=== PATIENT | male | born 1950 | race Caucasian/White ===

== ENCOUNTER → 2020-06-04 | Outpatient (CLI) | payer OTHER ==
[~2020-06-04] MED LIST: DIPHENHYDRAMINE25 M3 PO; ELIQUIS5 MG PO; GLUCOSAMINE &1 EACH PO; LISINOPRIL10 MG PO; METFORMIN HCL1000 MG PO; METOPROLOL SUCC25 M1 PO; MULTIVITAMINS1 EAC7 PO; OMEPRAZOLE 20 M20 M1 PO; ROSUVASTATIN CA40 MG PO
== END ==
LOC: LAB 13:34
PROVIDERS: ATTEND Student in an Organized Health Care Education/Training Program
DX: Z01.812 Encounter for preprocedural laboratory examination (principal); Z20.828 Contact with and (suspected) exposure to other viral communicable diseases

== ENCOUNTER → 2020-06-08 | Outpatient (CLI) | payer OTHER ==
[2020-06-08 15:00] VITALS: BP 123/80
--- NOTE | 2020-06-08 15:43 | NUR ---
VASCULAR ACCESS CONSULTED FOR PICC PLACEMENT. PT'S HX,MEDS VERIFIED. PT IS HAVING OR TOMORROW ON RIGHT HAND SO WILL HAVE DRESSING ON THAT HAND. PT WILL BE ADMINISTERING PWN MEDS AND REQUESTED PICC ON RIGHT SIDE SO HE CAN USE LEFT HAND. REVIEWED BENEFITS AND RISK WITH PT VERBALIZED UNDERSTANDING. 4FR POWER PICC SL TRIMMED TO 42CM INSERTED TO 0CM. STAT CXR ORDERED. PT TOLERATED WELL
--- NOTE | 2020-06-08 15:43 | NUR ---
IN FOR PICC LINE FOR HOME IV ANTIBIOTICS DUE TO RIGHT THUMB OSTEOMYELITIS. PATIENT TO HAVE SURGERY TOMORROW. IV TEAM PLACED SINGLE LUMEN PICC IN RIGHTY UPPER ARM BASILIC VEIN. CMP DRAWN WITHOUT DIFFICULTY. CXR CONFIRMED PROPER PLACEMENT AND OK TO USE. DISMISSED IN STABLE CONDITION.
--- NOTE | 2020-06-08 16:05 | NUR ---
CXR SHOWED PICC COILED SO REPOSITIONED AND POWER FLUSHED. 2ND CXR ORDERED STAT
[2020-06-08 16:06] LABS: ALBUMIN 3.8 g/dL (3.4-5.0); CALCIUM 8.8 mg/dL (8.5-10.1); CREATININE 0.9 mg/dL (0.7-1.3); TOTAL BILIRUBIN 0.4 mg/dL (0.2-1.0); TOTAL PROTEIN 6.8 g/dL (6.4-8.2)
--- NOTE | 2020-06-08 16:39 | NUR ---
2ND CXR PICC UNCOILED. PICC RELEASED FOR IMMEDIATE USE PER PROTOCOL
== END ==
LOC: OPONC 14:54
PROVIDERS: ATTEND Specialist
DX: M86.8X4 Other osteomyelitis, hand (principal)
CPT/HCPCS: 27000

== ENCOUNTER 2020-06-09 06:10 | Day surgery (SDC) | payer OTHER ==
[~2020-06-09] VITALS: Ht 182.9 cm; Wt 81.6 kg
[2020-06-09 07:04] VITALS: BP 137/77
[2020-06-09 08:21] VITALS: BP 137/77
--- NOTE | 2020-06-09 10:48 | EKG ---
[facility] [place] [address] [place] [address] ELECTROCARDIOGRAM REPORT Name: CANDELARIO MARIA Room #: [facility].#: [id number] Admission: 06/09/20 Attend Phys: Kavita Crane, Discharge: 06/09/20 Date of : 52 Report #: [id number] THIS REPORT FOR: cc: Kaleigh Goldstein MD,Kaleigh Ferrara,Tony Almaraz MD ~ THIS REPORT FOR: //name// [facility] Test Date: 2020-06-09 Test Time: 06:40:56 Pat Name: CANDELARIO MARIA Department: Room: [facility] 2 Gender: M Device Repair Technician: YONNY : 1950 Requested By: Gemma Kenny Order Number: [id number] MD: Tony Ferrara Measurements Intervals [place] Rate: 57 P: 205 WY: 254 QRS: 53 QRSD: 96 T: 38 QT: 431 QTc: 420 Interpretive Statements Atrial fibrillation Early transition Nonspecific ST-T wave changes Baseline wander Borderline low voltage, extremity leads No previous ECG available for comparison Electronically Signed On 06-09-2020 10:48:01 CDT by Tony Ferrara [email or web address] <ELECTRONICALLY SIGNED> By: Tony Ferrara MD 06/09/20 1048 0640 0640 Tony Ferrara MD /EPI
--- NOTE | 2020-06-10 17:20 | O ---
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 PROCEDURES PERFORMED: Right thumb interphalangeal joint debridement of bone and soft tissue. SURGEON: Kavita Crane MD ANESTHESIA: General mask anesthesia. ESTIMATED BLOOD LOSS: 1 mL TOURNIQUET TIME: 22 minutes. SPECIMEN: Swab and bone was sent to microbiology. COMPLICATIONS: None. CONDITION: Stable. DISPOSITION: Recovery room. INDICATIONS: The patient is a 70-year-old male with the above-mentioned diagnosis. He elects for operative treatment. The risks, benefits, alternatives and complications were discussed including but not limited to infection, damage to vessels or nerves, inability to resolve the infection necessitating more surgery, stiffness. Informed consent was obtained. The correct extremity was identified and labeled by myself. After verbal confirmation of the patient as well as visual confirmation and signed informed consent. DESCRIPTION OF PROCEDURE: The patient was brought to the operating room and [facility] [address] [place] [address] OPERATIVE REPORT Name: CANDELARIO MARIA Room #: DEP [facility] M.R.#: [id number] Admission: 06/09/20 Attend Phys: Kavita Crane, Discharge: 06/09/20 Date of : 52 Report #: [id number] placed on a supine position. The right upper extremity was sterilely prepped and draped in the usual fashion. Final timeout was taken to verify correct patient, operative procedure, operative site, all concurred. The arm was elevated, but was not exsanguinated and the tourniquet inflated. Next, the prior entry point for the drill was entered. A T-type incision was made on the radial side of the IP joint of the thumb. Dissection was carried down through subcutaneous tissue with a 15 blade. The joint was then entered. There was no gross pus. The joint was debrided with a micro curette using fluoroscopic guidance. Small bits of the bone were sent off to microbiology, see above. Fluoroscopy again showed a fairly destroyed IP joint. The joint was then thoroughly irrigated with approximately 750 mL of antibiotic saline using angiocatheter. The rest of the joint was irrigated with an Asepto. The wound was then closed with 4-0 nylon suture. The wound was dressed with Xeroform and sterile gauze. He was placed in a bulky dressing. All fingers were pink with brisk capillary refill. At the conclusion of the case after deflation of tourniquet and after application of dressing, all sponge and needle counts were correct. The patient did receive antibiotics after the tourniquet was deflated and cultures were taken. He was transferred to postoperative recovery room in stable condition. He tolerated the procedure well. <ELECTRONICALLY SIGNED> By: Kavita Crane MD 06/10/20 1720 0822 0845 Kavita Crane MD /nt
== END 2020-06-09 09:06 | disposition home or self-care (01) ==
LOC: TBA 06:10 → OR 06:10 → TBA 06:12 → OR 09:06
PROVIDERS: ATTEND Orthopaedic Surgery Hand Surgery
DX: M86.8X4 Other osteomyelitis, hand (principal); M13.841 Other specified arthritis, right hand; E11.9 Type 2 diabetes mellitus without complications; K21.9 Gastro-esophageal reflux disease without esophagitis; I48.91 Unspecified atrial fibrillation; Z98.890 Other specified postprocedural states; Z79.899 Other long term (current) drug therapy; Z90.49 Acquired absence of other specified parts of digestive tract; Z87.891 Personal history of nicotine dependence; Z86.73 Personal history of transient ischemic attack (TIA), and cerebral infarction without residual deficits; Z98.52 Vasectomy status; Z79.01 Long term (current) use of anticoagulants
CPT/HCPCS: 50010; 50101; 50386; 56526; 57006; 57091; 57178; 62110; 62900; 70005

== ENCOUNTER → 2020-06-10 | Outpatient (CLI) | payer OTHER ==
[2020-06-10 13:08] VITALS: BP 128/79
--- NOTE | 2020-06-10 14:11 | NUR ---
IN FOR IV DAPTOMYCIN FOR OSTEOMYELITIS RIGHT THUMB. S/P I&D YESTERDAY. DRESSING C/D/I. DENIED FEVER, CHILLS. HAVING MINIMAL PAIN TO RT THUMB AFTER TAKING A HYDROCODONE AT HOME THIS AM. TOLERATED INFUSION WITHOUT INCIDENT. PICC SITE WNL WITH GOOD BLOOD RETURN. SCHEDULED THROUGH . TO SEE DR. GROSSMAN NEXT SUNDAY IN HIS OFFICE. WITH PATIENT. WILL RETURN TOMORROW FOR THE SAME. DISMISSED IN STABLE CONDITION.
== END ==
LOC: OPONC 08:06
PROVIDERS: ATTEND Specialist
DX: M86.8X4 Other osteomyelitis, hand (principal)
CPT/HCPCS: 95000

== ENCOUNTER → 2020-06-11 | Outpatient (CLI) | payer OTHER ==
[2020-06-11 15:31] VITALS: BP 135/85
--- NOTE | 2020-06-11 15:35 | NUR ---
IN FOR DAILY DAPTOMYCIN INFUSION FOR OSTEOMYELITIS RT THUMB. DENIED FEVER, CHILLS, DIARRHEA, NAUSEA, VOMITING. TOLERATED INFUSION WITHOUT INCIDENT. PICC SITE WNL WITH GOOD BLOOD RETURN. WEEKEND INSTRUCTIONS GIVEN TO PATIENT. DISMISSED IN STABLE CONDITION.
== END ==
LOC: OPONC 07:48
PROVIDERS: ATTEND Specialist
DX: M86.141 Other acute osteomyelitis, right hand (principal)
CPT/HCPCS: 95000

== ENCOUNTER → 2020-06-12 | Outpatient (CLI) | payer OTHER | LOC: OPONC 06-11 12:00 | PROVIDERS: ATTEND Specialist | DX: M86.9 Osteomyelitis, unspecified (principal); M79.644 Pain in right finger(s) | CPT/HCPCS: 95000 ==

== ENCOUNTER → 2020-06-13 | Outpatient (CLI) | payer OTHER | LOC: OPONC 06-12 09:00 | PROVIDERS: ATTEND Specialist | DX: M86.9 Osteomyelitis, unspecified (principal) | CPT/HCPCS: 95000 ==

== ENCOUNTER → 2020-06-14 | Outpatient (CLI) | payer OTHER | LOC: OPONC 08:25 | PROVIDERS: ATTEND Specialist | DX: M86.8X4 Other osteomyelitis, hand (principal) | CPT/HCPCS: 95000 ==

== ENCOUNTER → 2020-06-15 | Outpatient (CLI) | payer OTHER ==
[2020-06-15 12:30] VITALS: BP 114/76
--- NOTE | 2020-06-15 13:05 | NUR ---
HERE FOR DAILY DAPTOMYCIN INFUSION. REPORTS DOING WELL, FEELING WELL. HAVING FREQUENT BUT VERY SMALL AMTS OF LIQUID STOOLING BUT HAS DAILY NORMAL BM'S WELL. EATING WELL. NO N/V. DENIES FEVER/CHILLS OR MUSCLE PAINS/WEAKNESS. C/O SOME FATIGUE. SEES DR. GROSSMAN THIS AFTERNOON AND DR. JACK TOMORROW. RT THUMB DRSG D/I. STATES PAINS HIM IN CERTAIN POSITIONS OR TOUCHING CERTAIN AREAS. ENCOURAGED PT TO REPORT THE LIQUID STOOLS TO DR. GROSSMAN AND PAIN TO DR. JACK. LABS DRAWN PER PICC, DSG CHANGE DONE, SITE LOOKS GOOD. TOLERATED INFUSION WITHOUT INCIDENT. DISMISSED IN STABLE CONDITION. SCHEDULED TO RETURN AGAIN TOMORROW.
[2020-06-15 13:46] LABS: HEMATOCRIT 42.4 % (42.0-52.0); HEMOGLOBIN 14.4 gm/dL (14.0-18.0); MCH 32.2 pg (26.0-34.0); MCHC 33.9 g/dL (28.0-37.0); MCV 94.9 fL (80.0-100.0); RBC 4.46 mil/uL (4.50-6.00); RDW 12.7 % (10.5-14.5); WBC 8.3 thou/uL (4.0-11.0)
[2020-06-15 14:06] LABS: ALBUMIN 3.9 g/dL (3.4-5.0); ANION GAP 14 mmol/L (7-16); BUN 18 mg/dL (7-18); CALCIUM 8.9 mg/dL (8.5-10.1); CHLORIDE 105 mmol/L (98-107); CO2 23 mmol/L (21-32); GLUCOSE 186 mg/dL (74-106); POTASSIUM 3.9 mmol/L (3.5-5.1); SGOT 28 U/L (15-37); SGPT 72 U/L (30-65); SODIUM 142 mmol/L (136-145); TOTAL BILIRUBIN 0.6 mg/dL (0.2-1.0); TOTAL PROTEIN 7.1 g/dL (6.4-8.2)
== END ==
LOC: OPONC 08:16
PROVIDERS: ATTEND Specialist
DX: M86.9 Osteomyelitis, unspecified (principal)
CPT/HCPCS: 95000

== ENCOUNTER → 2020-06-16 | Outpatient (CLI) | payer OTHER ==
[2020-06-16 12:10] VITALS: BP 112/79
--- NOTE | 2020-06-16 12:51 | NUR ---
HERE FOR DAILY DAPTOMYCIN INFUSION. REPORTS DOING WELL. NO FEVER/CHILLS. NO FURTHER DIARRHEA. SPOKE WITH DR. GROSSMAN ABOUT EARLIER WATERY STOOLS AND STATES DR GROSSMAN ADVISED LOMOTIL AND A PROBIOTIC FOR MANAGEMENT. TOLERATED INFUSION TODAY WITHOUT INCIDENT. DISMISSED IN STABLE CONDITION. SEES DR. JACK IN THE MORNING THEN US AGAIN AT NOON.
== END ==
LOC: OPONC 07:51
PROVIDERS: ATTEND Specialist
DX: M86.9 Osteomyelitis, unspecified (principal)
CPT/HCPCS: 95000

== ENCOUNTER → 2020-06-17 | Outpatient (CLI) | payer OTHER ==
[2020-06-17 12:46] VITALS: BP 123/72
--- NOTE | 2020-06-17 12:49 | NUR ---
IN FOR DAILY DAPTOMYCIN FOR OSTEOMYELITIS OF RT THUMB. DENIED MUSCLE WEAKNESS, NAUSEA, DIARRHEA, FEVER/CHILLS. TOLERATED INFUSION WITHOUT INCIDENT. TO RETURN TOMORROW FOR THE SAME. DISMISSED IN GOOD CONDITION.
== END ==
LOC: OPONC 08:29
PROVIDERS: ATTEND Specialist
DX: M86.8X4 Other osteomyelitis, hand (principal)
CPT/HCPCS: 95000

== ENCOUNTER → 2020-06-18 | Outpatient (CLI) | payer OTHER ==
[2020-06-18 14:53] VITALS: BP 127/80
--- NOTE | 2020-06-18 14:56 | NUR ---
IN FOR DAILY DAPTOMYCIN INFUSION FOR RT THUMB OSTEOMYELITIS. STATED FEELING WELL. DENIED MUSCLE WEAKNESS, FEVER/CHILLS, NAUSEA, PAIN AND DIARRHEA. TOLERATED INFUSION WITHOUT INCIDENT. PICC SITE WNL WITH GOOD BLOOD RETURN. PATIENT TO GO TO ED FOR AND SUNDAY INFUSIONS. DISMISSED IN GOOD CONDITION.
== END ==
LOC: OPONC 08:31
PROVIDERS: ATTEND Specialist
DX: M86.9 Osteomyelitis, unspecified (principal)
CPT/HCPCS: 95000

== ENCOUNTER → 2020-06-19 | Outpatient (CLI) | payer OTHER | LOC: OPONC 08:43 | PROVIDERS: ATTEND Specialist | DX: M86.8X4 Other osteomyelitis, hand (principal) | CPT/HCPCS: 95000 ==

== ENCOUNTER → 2020-06-20 | Outpatient (CLI) | payer OTHER | LOC: OPONC 06-19 08:46 | PROVIDERS: ATTEND Specialist | DX: M86.8X4 Other osteomyelitis, hand (principal) | CPT/HCPCS: 95000 ==

== ENCOUNTER → 2020-06-21 | Outpatient (CLI) | payer OTHER | LOC: OPONC 07:53 | PROVIDERS: ATTEND Specialist | DX: M86.9 Osteomyelitis, unspecified (principal) | CPT/HCPCS: 95000 ==

== ENCOUNTER → 2020-06-22 | Outpatient (CLI) | payer OTHER ==
[2020-06-22 13:40] LABS: ABSOLUTE NEUTROPHILS 5.2 thou/uL (1.4-8.2); BASOPHILS 0.7 % (0.0-2.0); EOSINOPHILS 0.5 % (0.0-3.0); HEMATOCRIT 40.1 % (42.0-52.0); HEMOGLOBIN 13.7 gm/dL (14.0-18.0); LYMPHOCYTES 24.7 % (24.0-44.0); MCH 32.5 pg (26.0-34.0); MCHC 34.2 g/dL (28.0-37.0); MCV 94.9 fL (80.0-100.0); MONOCYTES 7.3 % (1.0-8.0); PLATELET COUNT 146 thou/uL (150-400); POLYS 66.8 % (36.0-66.0); RBC 4.23 mil/uL (4.50-6.00); RDW 12.7 % (10.5-14.5); WBC 7.8 thou/uL (4.0-11.0)
[2020-06-22 13:54] LABS: ALBUMIN 4.2 g/dL (3.4-5.0); ANION GAP 9 mmol/L (7-16); BUN 16 mg/dL (7-18); CALCIUM 8.7 mg/dL (8.5-10.1); CHLORIDE 105 mmol/L (98-107); CO2 26 mmol/L (21-32); GLUCOSE 128 mg/dL (74-106); SGOT 40 U/L (15-37); SGPT 86 U/L (30-65); SODIUM 140 mmol/L (136-145); TOTAL BILIRUBIN 0.6 mg/dL (0.2-1.0); TOTAL PROTEIN 7.1 g/dL (6.4-8.2)
[2020-06-22 14:19] VITALS: BP 114/66
--- NOTE | 2020-06-22 14:22 | NUR ---
IN FOR DAILY DAPTOMYCIN INFUSION FOR RT THUMB OSTEOMYELITIS. STATED FEELING WELL. DENIED NAUSEA, PAIN, DIARRHEA, FEVER/CHILLS. LIC[facility] LAB FROM PICC LINE WITHOUT DIFFICULTY. TOLERATED INFUSION WITHOUT INCIDENT. CHANGED PICC DRESSING. SITE WN. HAS APPT WITH DR. GROSSMAN AT HIS OFFICE THIS AFTERNOON. FAXED LAB RESULTS TO DR. GROSSMAN. DISMISSED IN GOOD CONDITION. TO RETURN TOMORROW FOR THE SAME.
== END ==
LOC: OPONC 07:44
PROVIDERS: ATTEND Specialist
DX: M86.8X4 Other osteomyelitis, hand (principal)
CPT/HCPCS: 95000

== ENCOUNTER → 2020-06-23 | Outpatient (CLI) | payer OTHER ==
[2020-06-23 12:25] VITALS: BP 107/79
--- NOTE | 2020-06-23 13:00 | NUR ---
HERE FOR DAILY DAPTOMYCIN INFUSION. REPORTS DOING WELL. DENIES N/V/DIARRHEA, FEVER/CHILLS, MUSCLE PAIN OR WEAKNESS. RT THUMB DRSG D/I. PT WITHOUT ANY CONCERNS. TOLERATED INFUSION WITHOUT INCIDENT. DISMISSED IN STABLE CONDITION. SCHEDULED TO RETURN AGAIN AT NOON TOMORROW.
== END ==
LOC: OPONC 09:54
PROVIDERS: ATTEND Specialist
DX: M86.8X4 Other osteomyelitis, hand (principal)
CPT/HCPCS: 95000

== ENCOUNTER → 2020-06-24 | Outpatient (CLI) | payer OTHER ==
[2020-06-24 16:32] VITALS: BP 101/64
--- NOTE | 2020-06-24 16:34 | NUR ---
IN FOR DAILY DAPTOMYCIN INFUSION FOR RT THUMB OSTEOMYELITIS. STATED FEELING WELL. DENIED FEVER, CHILLS, NAUSEA, DIARRHEA, PAIN. TOLERATED INFUSION WITHOUT INCIDENT. PLAN IS TO CONTINUE FOR ANOTHER WEEK. DISMISSED IN GOOD CONDITION.
== END ==
LOC: OPONC 13:50
PROVIDERS: ATTEND Specialist
DX: M86.8X4 Other osteomyelitis, hand (principal)
CPT/HCPCS: 95000

== ENCOUNTER → 2020-06-25 | Outpatient (CLI) | payer OTHER ==
[2020-06-25 11:40] VITALS: BP 129/69
--- NOTE | 2020-06-25 15:48 | NUR ---
IN FOR DAILY DAPTOMYCIN INFUSION. STATED FEELING WELL. DENIED NAUSEA, FEVER/CHILLS, PAIN, DIARRHEA. TOLERATED INFUSION WITHOUT INCIDENT. PICC SITE WNL. GOOD BLOOD RETURN. TO GO TO ED FOR WEEKEND INFUSIONS AND THEN BACK TO CLINIC ON SUNDAY THROUGHT SUNDAY. DISMISSED IN GOOD CONDITION.
== END ==
LOC: OPONC 10:34
PROVIDERS: ATTEND Specialist
DX: M86.8X4 Other osteomyelitis, hand (principal)
CPT/HCPCS: 95000

== ENCOUNTER → 2020-06-26 | Outpatient (CLI) | payer OTHER | LOC: OPONC 12:00 | PROVIDERS: ATTEND Specialist | DX: M86.8X4 Other osteomyelitis, hand (principal) | CPT/HCPCS: 95000 ==

== ENCOUNTER → 2020-06-27 | Outpatient (CLI) | payer OTHER | LOC: OPONC 12:00 | PROVIDERS: ATTEND Specialist | DX: M86.8X4 Other osteomyelitis, hand (principal) | CPT/HCPCS: 95000 ==

== ENCOUNTER → 2020-06-28 | Outpatient (CLI) | payer OTHER ==
[2020-06-28 07:36] VITALS: BP 122/87
--- NOTE | 2020-06-28 08:10 | NUR ---
HERE FOR DAILY DAPTOMYCIN INFUSION. REPORTS DOING WELL, FEELING WELL. DENIES N/V/DIARRHEA, FEVER/CHILLS, MUSCLE PAIN/WEAKNESS. NO CONCERS NOTED. TOLERATED INFUSION WITHOUT INCIDENT. DISMISSED IN STABLE CONDITION.
== END ==
LOC: OPONC 08:10
PROVIDERS: ATTEND Specialist
DX: M86.8X4 Other osteomyelitis, hand (principal)
CPT/HCPCS: 95000

== ENCOUNTER → 2020-06-29 | Outpatient (CLI) | payer OTHER ==
[2020-06-29 12:35] VITALS: BP 131/77
[2020-06-29 12:58] LABS: HEMATOCRIT 40.5 % (42.0-52.0); HEMOGLOBIN 13.7 gm/dL (14.0-18.0); MCH 32.1 pg (26.0-34.0); MCHC 33.8 g/dL (28.0-37.0); MCV 94.8 fL (80.0-100.0); RBC 4.27 mil/uL (4.50-6.00); RDW 12.4 % (10.5-14.5); WBC 7.6 thou/uL (4.0-11.0)
--- NOTE | 2020-06-29 13:00 | NUR ---
HERE FOR DAILY DAPTOMYCIN INFUSION. REPORTS DOING WELL, FEELING WELL. LABS DRAWN TODAY, PICC DRESSING CHANGE DONE. ALL LOOKS GOOD. PT WITHOUT CONCERNS. TOLERATED INFUSION WITHOUT INCIDENT. DISMISSED IN STABLE CONDITION.
[2020-06-29 14:40] LABS: CALCIUM 9.1 mg/dL (8.5-10.1); POTASSIUM 4.4 mmol/L (3.5-5.1); TOTAL BILIRUBIN 0.8 mg/dL (0.2-1.0); TOTAL PROTEIN 7.7 g/dL (6.4-8.2)
== END ==
LOC: OPONC 11:37
PROVIDERS: ATTEND Specialist
DX: M86.9 Osteomyelitis, unspecified (principal)
CPT/HCPCS: 95000

== ENCOUNTER → 2020-06-30 | Outpatient (CLI) | payer OTHER ==
[2020-06-30 12:35] VITALS: BP 120/88
== END ==
LOC: OPONC 11:13
PROVIDERS: ATTEND Specialist
DX: M86.9 Osteomyelitis, unspecified (principal)
CPT/HCPCS: 95000

== ENCOUNTER → 2020-07-01 | Outpatient (CLI) | payer OTHER ==
[2020-07-01 14:10] VITALS: BP 116/67
== END ==
LOC: OPONC 11:10
PROVIDERS: ATTEND Specialist
DX: M86.9 Osteomyelitis, unspecified (principal)
CPT/HCPCS: 95000

== ENCOUNTER → 2020-07-02 | Outpatient (CLI) | payer OTHER ==
[2020-07-02 16:36] VITALS: BP 123/78
== END ==
LOC: OPONC 12:03
PROVIDERS: ATTEND Specialist
DX: M86.9 Osteomyelitis, unspecified (principal)
CPT/HCPCS: 95000

== ENCOUNTER → 2020-07-03 | Outpatient (CLI) | payer OTHER ==
[2020-07-03 11:23] VITALS: BP 126/86
== END ==
LOC: OPONC 11:32
PROVIDERS: ATTEND Specialist
DX: M86.9 Osteomyelitis, unspecified (principal)
CPT/HCPCS: 95000

== ENCOUNTER → 2020-07-04 | Outpatient (CLI) | payer OTHER ==
[2020-07-04 11:17] VITALS: BP 122/81
--- NOTE | 2020-07-04 11:44 | NUR ---
IN FOR DAILY DAPTOMYCIN INFUSION. STATED FEELING WELL. DENIED NAUSEA, DIARRHEA, FEVER, CHILLS, PAIN. TOLERATED INFUSION WITHOUT INCIDENT. DISMISSED IN GOOD CONDITION.
== END ==
LOC: OPONC 10:38
PROVIDERS: ATTEND Specialist
DX: M86.9 Osteomyelitis, unspecified (principal)
CPT/HCPCS: 95000

== ENCOUNTER → 2020-07-05 | Outpatient (CLI) | payer OTHER ==
[2020-07-05 11:12] VITALS: BP 115/73
--- NOTE | 2020-07-05 12:08 | NUR ---
HERE FOR DAILY IV DAPTOMYCIN INFUSION. REPORTS DOING WELL, FEELING WELL. NO CONCERNS NOTED. TOLERATED INFUSION WITHOUT INCIDENT. DISMISSED IN STABLE CONDITION. SCHEDULED TO RETURN AGAIN TOMORROW.
== END ==
LOC: OPONC 10:02
PROVIDERS: ATTEND Specialist
DX: M06.9 Rheumatoid arthritis, unspecified (principal)
CPT/HCPCS: 95000

== ENCOUNTER → 2020-07-06 | Outpatient (CLI) | payer OTHER ==
[2020-07-06 14:12] LABS: HEMATOCRIT 38.4 % (42.0-52.0); MCH 31.9 pg (26.0-34.0); MCHC 33.7 g/dL (28.0-37.0); MCV 94.6 fL (80.0-100.0); RBC 4.07 mil/uL (4.50-6.00); RDW 12.5 % (10.5-14.5); WBC 7.8 thou/uL (4.0-11.0)
[2020-07-06 14:31] LABS: ALBUMIN 3.9 g/dL (3.4-5.0); CALCIUM 9.1 mg/dL (8.5-10.1); CREATININE 0.9 mg/dL (0.7-1.3); TOTAL BILIRUBIN 0.4 mg/dL (0.2-1.0)
[2020-07-06 15:01] VITALS: BP 109/64
--- NOTE | 2020-07-06 15:03 | NUR ---
IN FOR DAILY DAPTOMYCIN INFUSION. STATED FEELING WELL. TOLERATED INFUSION WITHOUT INCIDENT. LICHA LABS FROM PICC LINE WITHOUT DIFFICULTY. PICC DRESSING CHANGED. SITE WNL. DISMISSED IN GOOD CONDITION.
== END ==
LOC: OPONC 11:27
PROVIDERS: ATTEND Specialist
DX: M86.9 Osteomyelitis, unspecified (principal)
CPT/HCPCS: 95000

== ENCOUNTER → 2020-07-07 | Outpatient (CLI) | payer OTHER ==
[2020-07-07 12:00] VITALS: BP 117/77
--- NOTE | 2020-07-07 12:05 | NUR ---
HERE FOR DAILY IV DAPTOMYCIN INFUSION. REPORTS DOING WELL, FEELING WELL. NO CONCERNS NOTED. TOLERATED INFUSION WITHOUT INCIDENT. DISMISSED IN STABLE CONDITION. SCHEDULED TO RETURN TOMORROW.
== END ==
LOC: OPONC 10:41
PROVIDERS: ATTEND Specialist
DX: M86.9 Osteomyelitis, unspecified (principal)
CPT/HCPCS: 95000

== ENCOUNTER → 2020-07-08 | Outpatient (CLI) | payer OTHER ==
[2020-07-08 15:07] VITALS: BP 111/75
--- NOTE | 2020-07-08 15:12 | NUR ---
IN FOR DAPTOMYCIN INFUSION FOR RT THUMB OSTEOMYELITIS. STATED FEELING WELL. DENIED N/V, F/C, DIARRHEA, PAIN. TOLERATED INFUSION WITHOUT INCIDENT. PICC SITE WNL WITH GOOD BLOOD RETURN. TO RETURN TOMORROW FOR NEXT INFUSION. DISMISSED IN GOOD CONDITION.
== END ==
LOC: OPONC 10:44
PROVIDERS: ATTEND Specialist
DX: M86.9 Osteomyelitis, unspecified (principal)
CPT/HCPCS: 95000

== ENCOUNTER → 2020-07-09 | Outpatient (CLI) | payer OTHER ==
[2020-07-09 15:28] VITALS: BP 124/78
--- NOTE | 2020-07-09 15:30 | NUR ---
IN FOR DAILY DAPTOMYCIN INFUSION. STATED FEELING WELL. TOLERATED INFUSION WITHOUT INCIDENT. DISMISSED IN GOOD CONDITION.
== END ==
LOC: OPONC 10:44
PROVIDERS: ATTEND Specialist
DX: M86.9 Osteomyelitis, unspecified (principal)
CPT/HCPCS: 95000

== ENCOUNTER → 2020-07-10 | Outpatient (CLI) | payer OTHER ==
[2020-07-10 11:43] VITALS: BP 134/81
--- NOTE | 2020-07-10 11:59 | NUR ---
IN FOR DAILY DAPTOMYCIN INFUSION FOR RIGHT THUMB OSTEOMYELITIS. STATED FEELING WELL. DENIED NAUSEA, DIARRHEA, PAIN, FEVER, CHILLS. TOLERATED INFUSION WITHOUT INCIDENT. DISMISSED IN GOOD CONDITION.
== END ==
LOC: OPONC 11:31
PROVIDERS: ATTEND Specialist
DX: M86.9 Osteomyelitis, unspecified (principal)
CPT/HCPCS: 95000

== ENCOUNTER → 2020-07-11 | Outpatient (CLI) | payer OTHER ==
[2020-07-11 11:46] VITALS: BP 121/54
--- NOTE | 2020-07-11 11:48 | NUR ---
IN FOR DAILY DAPTOMYCIN INFUSION FOR RT THUMB OSTEOMYELITIS. STATED FEELING WELL. DENIED N/V, F/C, PAIN, MUSCLE WEAKNESS. TOLERATED INFUSION WITHOUT INCIDENT. TO RETURN TOMORROW FOR THE SAME. DISMISSED IN GOOD CONDITION.
== END ==
LOC: OPONC 11:53
PROVIDERS: ATTEND Specialist
DX: M86.9 Osteomyelitis, unspecified (principal)
CPT/HCPCS: 95000

== ENCOUNTER → 2020-07-12 | Outpatient (CLI) | payer OTHER ==
[2020-07-12 12:10] VITALS: BP 115/79
--- NOTE | 2020-07-12 12:50 | NUR ---
HERE FOR DAILY IV DAPTOMYCIN. REPORTS DOING WELL, FEELING WELL. NO CONCERNS NOTED. TOLERATED INFUSION WITHOUT INCIDENT. SCHEDULED TO RETURN AGAIN TOMORROW. DISMISSED IN STABLE CONDITION.
== END ==
LOC: OPONC 11:29
PROVIDERS: ATTEND Specialist
DX: M86.9 Osteomyelitis, unspecified (principal)
CPT/HCPCS: 95000

== ENCOUNTER → 2020-07-13 | Outpatient (CLI) | payer OTHER ==
[2020-07-13 12:16] LABS: HEMATOCRIT 40.9 % (42.0-52.0); HEMOGLOBIN 13.9 gm/dL (14.0-18.0); MCH 32.3 pg (26.0-34.0); MCHC 34.1 g/dL (28.0-37.0); MCV 94.8 fL (80.0-100.0); RBC 4.31 mil/uL (4.50-6.00); RDW 12.3 % (10.5-14.5); WBC 8.7 thou/uL (4.0-11.0)
[2020-07-13 12:32] LABS: ALBUMIN 4.1 g/dL (3.4-5.0); CALCIUM 9.5 mg/dL (8.5-10.1); POTASSIUM 4.3 mmol/L (3.5-5.1); TOTAL BILIRUBIN 0.4 mg/dL (0.2-1.0); TOTAL PROTEIN 7.2 g/dL (6.4-8.2)
[2020-07-13 14:51] VITALS: BP 129/72
--- NOTE | 2020-07-13 14:54 | NUR ---
IN FOR DAILY DAPTOMYCIN INFUSION. STATED FEELING WELL. DENIED N/V, F/C, DIARRHA, MUSCLE WEAKNESS, PAIN. LICHA LABS FROM PICC LINE WITHOUT DIFFICULTY. TOLERATED INFUSION WITHOUT INCIDENT. PICC DRESSING CHANGED. PICC SITE WNL. PATIENT WILL SEE DR. GROSSMAN IN HIS OFFICE ON SUNDAY AND DR. QUIROGA ON SUNDAY. LAB RESULTS FAXED TO DR. GROSSMAN. TO RETURN TOMORROW. DISMISSED IN GOOD CONDITION.
== END ==
LOC: OPONC 10:00
PROVIDERS: ATTEND Specialist
DX: M86.9 Osteomyelitis, unspecified (principal)
CPT/HCPCS: 95000

== ENCOUNTER → 2020-07-14 | Outpatient (CLI) | payer OTHER ==
[2020-07-14 11:10] VITALS: BP 123/76
--- NOTE | 2020-07-14 11:45 | NUR ---
HERE FOR DAILY IV DAPTOMYCIN INFUSION. REPORTS DOING WELL, FEELING WELL. NO CONCERNS NOTED. TOLERATED INFUSION TODAY WITHOUT INCIDENT. SEES DR. JACK AND DR. GROSSMAN THIS WEEK ON . SCHEDULED TO RETURN AGAIN TOMORROW.
== END ==
LOC: OPONC 10:16
PROVIDERS: ATTEND Specialist
DX: M86.9 Osteomyelitis, unspecified (principal)
CPT/HCPCS: 95000

== ENCOUNTER → 2020-07-15 | Outpatient (CLI) | payer OTHER ==
[2020-07-15 13:47] VITALS: BP 109/67
--- NOTE | 2020-07-15 13:50 | NUR ---
IN FOR DAILY DAPTOMYCIN INFUSION. STATED FEELING WELL. DENIED PAIN, N/V, FEVER, CHILLS, MUSCLE WEAKNESS. TOLERATED INFUSION WITHOUT INCIDENT. TO RETURN TOMORROW FOR THE SAME. DISMISSED IN GOOD CONDITION.
== END ==
LOC: OPONC 10:09
PROVIDERS: ATTEND Specialist
DX: M86.9 Osteomyelitis, unspecified (principal)
CPT/HCPCS: 95000

== ENCOUNTER → 2020-07-16 | Outpatient (CLI) | payer OTHER ==
[2020-07-16 10:05] VITALS: BP 114/75
--- NOTE | 2020-07-16 10:40 | NUR ---
HERE FOR IV DAILY DAPTOMYCIN. REPORTS DOING WELL, FEELING WELL. DENIES N/V/DIARRHEA, FEVER/CHILLS. OCCASIONAL ELECTRIFYING PAIN RT THUMB WITH CERTAIN POSITIONS. WILL SPEAK WITH DR. JACK ABOUT THAT TODAY WHEN HE SEES HER POST INFUSION. THUMB LOOKS HEALED. TOLERATED INFUSION WITHOUT INCIDENT. DISMISSED IN STABLE CONDITION. WILL RETURN AGAIN IN THE MORNING.
== END ==
LOC: OPONC 08:54
PROVIDERS: ATTEND Specialist
DX: M86.9 Osteomyelitis, unspecified (principal)
CPT/HCPCS: 95000

== ENCOUNTER → 2020-07-17 | Outpatient (CLI) | payer OTHER ==
[2020-07-17 12:10] VITALS: BP 115/69
--- NOTE | 2020-07-17 12:39 | NUR ---
HERE FOR DAILY DAPTOMYCIN INFUSION. REPORTS DOING WELL. NO CONCERNS NOTED. TOLERATED INFUSION WITHOUT INCIDENT. DISMISSED IN STABLE CONDITION. WILL RETURN AGAIN IN THE MORNING.
== END ==
LOC: OPONC 08:55
PROVIDERS: ATTEND Specialist
DX: M86.9 Osteomyelitis, unspecified (principal)
CPT/HCPCS: 95000

== ENCOUNTER → 2020-07-18 | Outpatient (CLI) | payer OTHER ==
[2020-07-18 11:38] VITALS: BP 128/68
--- NOTE | 2020-07-18 11:41 | NUR ---
HERE FOR DAILY IV DAPTOMYCIN INFUSION. REPORTS DOING WELL. NO CONCERNS NOTED. TOLERATED INFUSION WITHOUT INCIDENT. DISMISSED IN STABLE CONDITION. SCHEDULED TO RETURN AGAIN TOMORROW.
== END ==
LOC: OPONC 08:59
PROVIDERS: ATTEND Specialist
DX: M86.8X4 Other osteomyelitis, hand (principal)
CPT/HCPCS: 95000

== ENCOUNTER → 2020-07-19 | Outpatient (CLI) | payer OTHER ==
[2020-07-19 12:20] VITALS: BP 117/68
--- NOTE | 2020-07-19 12:55 | NUR ---
HERE FOR DAILY IV DAPTOMYCIN INFUSION. REPORTS DOING WELL, FEELING WELL. NO CONCERNS NOTED. TOLERATED INFUSION WITHOUT INCIDENT. DISMISSED IN STABLE CONDITION. SCHEDULED TO RETURN TOMORROW.
== END ==
LOC: OPONC 08:49
PROVIDERS: ATTEND Specialist
DX: M86.9 Osteomyelitis, unspecified (principal)
CPT/HCPCS: 95000

== ENCOUNTER → 2020-07-20 | Outpatient (CLI) | payer OTHER ==
[2020-07-20 13:15] VITALS: BP 116/80
--- NOTE | 2020-07-20 13:18 | NUR ---
IN FOR DAILY DAPTOMYCIN INFUSION. STATED FEELING WELL. DENIED PAIN, NAUSEA, DIARRHEA, FEVER, CHILLS, MUSCLE WEAKNESS. LICHA LABS FROM PICC LINE WITHOUT DIFFICULTY. TOLERATED INFUSION WITHOUT INCIDENT. TO RETURN TOMORROW FOR THE SAME. DISMISSED IN GOOD CONDITION.
[2020-07-20 13:24] LABS: HEMATOCRIT 41.9 % (42.0-52.0); MCH 31.7 pg (26.0-34.0); MCHC 33.4 g/dL (28.0-37.0); MCV 94.9 fL (80.0-100.0); RBC 4.41 mil/uL (4.50-6.00); RDW 12.8 % (10.5-14.5); WBC 8.3 thou/uL (4.0-11.0)
[2020-07-20 13:39] LABS: ALBUMIN 4.1 g/dL (3.4-5.0); ANION GAP 12 mmol/L (7-16); BUN 21 mg/dL (7-18); CALCIUM 9.2 mg/dL (8.5-10.1); CHLORIDE 102 mmol/L (98-107); CO2 26 mmol/L (21-32); GLUCOSE 232 mg/dL (74-106); POTASSIUM 3.9 mmol/L (3.5-5.1); SGOT 22 U/L (15-37); SGPT 50 U/L (30-65); SODIUM 140 mmol/L (136-145); TOTAL BILIRUBIN 0.4 mg/dL (0.2-1.0)
== END ==
LOC: OPONC 11:09
PROVIDERS: ATTEND Specialist
DX: M86.9 Osteomyelitis, unspecified (principal)
CPT/HCPCS: 95000

== ENCOUNTER → 2020-07-21 | Outpatient (CLI) | payer OTHER ==
[2020-07-21 12:43] VITALS: BP 127/77
--- NOTE | 2020-07-21 16:53 | NUR ---
PT HERE FOR LAST SCHEDULED DOSE OF DAPTOMYCIN. SEES DR. GROSSMAN TOMORROW. TOLERATED INFUSION WITHOUT INCIDENT. PICC LEFT IN PLACE IN EVENT PT WILL NEED CONTINUED TX BUT THOUGHT IS DR. GROSSMAN WILL REMOVE LINE WITH VISIT TOMORROW IF DETERMINES PT IS DONE. PT WITHOUT COMPLAINTS OR CONCERNS. HAS TOLERATED INFUSIONS WELL. DISMISSED IN STABLE CONDITION.
== END ==
LOC: OPONC 11:09
PROVIDERS: ATTEND Specialist
DX: M86.8X4 Other osteomyelitis, hand (principal)
CPT/HCPCS: 95000

== ENCOUNTER → 2021-07-18 | Outpatient (CLI) | payer OTHER | LOC: SJCVCIMAG 07:30 | PROVIDERS: ATTEND Internal Medicine | DX: I08.1 Rheumatic disorders of both mitral and tricuspid valves (principal); I48.19 Other persistent atrial fibrillation; E78.5 Hyperlipidemia, unspecified; E11.9 Type 2 diabetes mellitus without complications ==